=== PATIENT | female | born 1995 | race Asian ===

== ENCOUNTER 2021-12-29 15:06 | Emergency (ER) | payer OTHER ==
[2021-12-29] MEDS ORDERED: MOTRIN600 MG PO (20:01)
== END 2021-12-29 20:35 | disposition home or self-care (01) ==
LOC: FER 15:06
DX: S16.1XXA Strain of muscle, fascia and tendon at neck level, initial encounter (principal); S09.90XA Unspecified injury of head, initial encounter; M25.552 Pain in left hip; F17.290 Nicotine dependence, other tobacco product, uncomplicated; V43.52XA Car driver injured in collision with other type car in traffic accident, initial encounter
CPT/HCPCS: 70450; 72125; 73502